=== PATIENT | female | born 1980 | race African-American/Black ===

== ENCOUNTER 2021-08-26 09:30 | Outpatient (RCR) | payer SELFPAY ==
[2021-08-26 09:30] VITALS: BMI 31.6
[2021-08-26 09:32] VITALS: BMI 31.6
== END 2021-11-03 12:07 | disposition home or self-care (01) ==
LOC: ANHDMC 09:30
PROVIDERS: PCP Nurse Practitioner Family; Referring Provider Nurse Practitioner Family; Visit Provider Nurse Practitioner Family
DX: E11.65 Type 2 diabetes mellitus with hyperglycemia (principal); Z71.89 Other specified counseling; Z71.3 Dietary counseling and surveillance
CPT/HCPCS: 97802; 99199; G0108